=== PATIENT | female | born 1960 | race African-American/Black ===

== ENCOUNTER 2019-05-25 21:57 | Emergency (ER) | payer OTHER ==
[2019-05-25 22:03] VITALS: BMI 23.5
--- NOTE | 2019-05-25 22:41 | PDOC ---
History of Present Illness - General Chief Complaint: Headache Stated Complaint: HEAD PAIN X 3 DAYS Time Seen by Provider: 05/25/19 22:39 History Source: Patient Exam Limitations: No Limitations - History of Present Illness Initial Comments: 05/25/19 22:41 HPI: 59yo F with PMH herniated disk presenting with a headache for the past 3 days s/p reported fall during transfer while sedated at a facility placing epidural for her herniated disk pain (on 04/22). Patient was given 100 mcg of fentanyl and transferred to [facility] for post-procedure neck pain where she underwent head and neck CT which were negative for bleed and demonstrated a cervical spine strain. Patient was discharged with ibuprofen. Following day () she presented to her PCP who provided a muscle relaxant and told her she had a 'very bad concussion.' On 04/24 she sent to her neurologist's office (Dr. Kaye) and was given an injection which she reports helped her. She comes in with copies of documentation from the epidual facility ([facility]) and [facility]. No CT report. Last took Butalbital APAP at 8PM with some relief of her pain. Currently, patient is complaining of right parietal / occipital headache, photophobia, dizziness with movement, nausea (no vomiting) and poor PO since the initial incident. Reports that movement makes he symptoms worse, and she has a strange sensation in her left head "like something is in there, or I am not really touching it" and feels a pulling sensation if she turns her head. All: PCNs --> Swelling Meds: per chart PMH: as above PSH: denies SHx: never smoker Past History - Travel Traveled outside of the country in the last 30 days: No Close contact w/someone who was outside of country & ill: No - Past Medical History Allergies/Adverse Reactions: Allergies Allergy/AdvReac Type Severity Reaction Status Date / Time Penicillins Allergy Verified 05/25/19 22:03 COPD: No - Psycho Social/Smoking Cessation Hx Smoking History: Never smoked Review of Systems - Review of Systems Able to Perform ROS?: Yes Is the patient limited Czech proficient: Yes Constitutional: No: Chills, Diaphoresis, Fever, Weakness HEENTM: No: Eye Pain, Blurred Vision, Recent change in vision, Nose Congestion, Throat Pain, Dental Problems Respiratory: No: Cough, Shortness of Breath, Wheezing Cardiac (ROS): No: Chest Pain, Edema, Irregular Heart Rate, Palpitations, Syncope, Chest Tightness ABD/GI: Yes: See HPI, Diarrhea (3 epsisodes ), Nausea. No: Constipated, Vomiting : No: Burning, Dysuria, Discharge, Frequency Musculoskeletal: Yes: See HPI, Muscle Pain, Neck Pain. No: Back Pain, Muscle Weakness Integumentary: No: Bruising, Erythema, Pruritus, Rash Neurological: Yes: Headache, Dizziness. No: Numbness, Pre-Existing Deficit, Tingling, Weakness, Unsteady Gait Psychiatric: No: Anxiety, Depression, Emotional Problems Endocrine: No: Increased Thirst, Increased Urine, Unexplained Weight Gain, Unexplained Weight Loss, Change in Weight Hematologic/Lymphatic: No: Anemia, Blood Clots, Easy Bleeding All Other Systems: Reviewed and Negative *Physical Exam - Vital Signs Last Vital Signs Temp Pulse Resp BP Pulse Ox 97.8 F 63 18 124/97 99 05/25/19 22:00 05/25/19 22:00 05/25/19 22:00 05/25/19 22:00 05/25/19 22:00 - Physical Exam 05/25/19 22:41 AFVSS WDWN woman, appears stated age, sitting in a dark room NCAT, no bleeding, swelling, bony step-offs or tenderness, EOMI without pain, dry MM, trachea midline, tender para-spinals on the right RRR, nl s1s2, no murmur appreciated CTABL, normal WOB, no wheezes / rales / rhonchi Soft, non-tender, non-distended 2+ radial and PT pulses CN 2-12 intact, normal finger nose finger and rapid alternating movements, 5+ strength throughout, normal sensation throughout, normal articulation and memory ED Treatment Course - LABORATORY CBC & Chemistry Diagram: 05/25/19 22:55 05/25/19 22:55 Medical Decision Making - Medical Decision Making 05/25/19 22:42 59yo F with PMH herniated disk presenting with a headache for the past 3 days s/ p reported fall during transfer while sedated at a facility placing epidural for her herniated disk pain (on 04/22). DDX includes but is not limited to: Concussion, ICH, radiculopathy, primary KENDRICK. - CBC, CMP, T&S - IVF - Reglan - NCHCT, C-Spine - Toradol after CT results 05/26/19 02:22 - NCHCT without ICH - C6 osteophyte, C spine otherwise non-remarkable - Labs unremarkable - Patient ambulates well - Stable and ready for discharge - F/u with neurology Dispo: Home Discharge - Discharge Information Problems reviewed: Yes Clinical Impression/Diagnosis: Head ache Qualifiers: Headache type: post-traumatic Headache chronicity pattern: acute headache Intractability: not intractable Qualified Code(s): G44.319 - Acute post- traumatic headache, not intractable Condition: Stable Disposition: HOME - Admission No - Follow up/Referral Referrals: Lionel Barboza MD [Staff Physician] - - Patient Discharge Instructions Patient Printed Discharge Instructions: DI for Postconcussion Syndrome, DI for Concussion Additional Instructions: Continue to take your prescribed medications as directed. Please follow up with Dr. Barboza in the next 1-2 days. Return to the ED for any new or concerning symptoms including worsening headache that does not respond to pain medication, nausea/vomiting, changes in your vision, difficulty walking. - Post Discharge Activity
[2019-05-25 23:07] LABS: BASO % 0.9 % (0-2.0); EOS % 0.9 % (0-4.5); HEMATOCRIT 35.7 % (32.4-45.2); HEMOGLOBIN 11.9 GM/dL (10.7-15.3); LYMPH % 22.9 % (8-40); MCH 29.4 pg (25.7-33.7); MCHC 33.4 g/dl (32.0-36.0); MEAN CELL VOLUME 88.1 fl (80-96); MEAN PLT VOLUME 8.1 fl (7.5-11.1); MONO % 6.9 % (3.8-10.2); NEUT % 68.4 % (42.8-82.8); PLATELET COUNT 249 K/MM3 (134-434); RBC 4.06 M/mm3 (3.60-5.2); RDW 13.7 % (11.6-15.6); WHITE BLOOD COUNT 6.5 K/mm3 (4.0-10.0)
[2019-05-25 23:19] LABS: INR 0.97 (0.83-1.09); PROTHROMBIN TIME (PATIENT) 11.5 SEC (9.7-13.0)
[2019-05-25 23:21] LABS: ACTIVATED PTT 27.5 SECONDS (25.2-36.5)
[2019-05-25 23:25] LABS: ALBUMIN 3.8 g/dl (3.4-5.0); BILIRUBIN,TOTAL 0.5 mg/dL (0.2-1); BLOOD UREA NITROGEN 17.8 mg/dL (7-18); CALCIUM 8.9 mg/dL (8.5-10.1); CREATININE 0.9 mg/dL (0.55-1.3); POTASSIUM 3.6 mmol/L (3.5-5.1); TOT PROT 6.8 g/dl (6.4-8.2)
[2019-05-25] MEDS ORDERED: METOCLOPRAMIDE HCL INJECTION 10 MG/2 ML VIAL IVPB ONE (23:25)
[2019-05-25] MEDS ORDERED: SODIUM CHLORIDE 0.9% 500 ML INFUS.BAG IV ONE (23:25)
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
[2019-05-25] MEDS ORDERED: METOCLOPRAMIDE HCL INJECTION 10 MG/2 ML VIAL ONE (23:44)
[2019-05-26 03:39] VITALS: BP 115/71; PULSE 54; TEMP 98.1
== END 2019-05-26 03:59 | disposition home or self-care (01) ==
LOC: JER 21:57
PROC: 3E033GC Introduction of Other Therapeutic Substance into Peripheral Vein, Percutaneous Approach (ICD-10-PCS; principal; 2019-05-25)
DX: G44.319 Acute post-traumatic headache, not intractable (principal); F07.81 Postconcussional syndrome; W04.XXXA Fall while being carried or supported by other persons, initial encounter; Y93.89 Activity, other specified; Y92.531 Health care provider office as the place of occurrence of the external cause; Y99.8 Other external cause status; Z88.0 Allergy status to penicillin
CPT/HCPCS: 36415; 70450-TC; 72125-TC; 80053; 84484; 85025; 85610; 85730; 86850; 86900; 86901; 99284-25

== ENCOUNTER 2019-05-28 12:03 | Inpatient (IN) | payer OTHER ==
[2019-05-28 12:09] VITALS: BMI 23.5
[2019-05-28] MEDS ORDERED: SODIUM CHLORIDE 0.9% 500 ML INFUS.BAG IV ONE (13:05)
[2019-05-28] MEDS ORDERED: KETOROLAC TROMETHAMINE 30 MG/1 ML VIAL IVPUSH ONE (13:05)
[2019-05-28] MEDS ORDERED: METOCLOPRAMIDE HCL INJECTION 10 MG/2 ML VIAL IVPUSH ONE (13:06)
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
[2019-05-28] MEDS ORDERED: KETOROLAC TROMETHAMINE 30 MG/1 ML VIAL ONE (14:00)
[2019-05-28] MEDS ORDERED: METOCLOPRAMIDE HCL INJECTION 10 MG/2 ML VIAL ONE (14:00)
[2019-05-28] MEDS ORDERED: ACETAMINOPHEN 325 MG TABLET (FP) PO PRN (14:10)
[2019-05-28 14:11] LABS: BASO % 1.2 % (0-2.0); EOS % 1.2 % (0-4.5); HEMATOCRIT 38.3 % (32.4-45.2); HEMOGLOBIN 12.7 GM/dL (10.7-15.3); LYMPH % 25.9 % (8-40); MCH 29.2 pg (25.7-33.7); MEAN CELL VOLUME 88.4 fl (80-96); MEAN PLT VOLUME 8.3 fl (7.5-11.1); MONO % 6.1 % (3.8-10.2); NEUT % 65.6 % (42.8-82.8); PLATELET COUNT 277 K/MM3 (134-434); RBC 4.33 M/mm3 (3.60-5.2)
[2019-05-28 14:39] LABS: INR 1.01 (0.83-1.09); PROTHROMBIN TIME (PATIENT) 11.9 SEC (9.7-13.0)
[2019-05-28 14:42] LABS: ACTIVATED PTT 30.5 SECONDS (25.2-36.5)
[2019-05-28 14:55] LABS: ALBUMIN 4.1 g/dl (3.4-5.0); BILIRUBIN,TOTAL 0.5 mg/dL (0.2-1); BLOOD UREA NITROGEN 12.8 mg/dL (7-18); CREATININE 0.7 mg/dL (0.55-1.3); POTASSIUM 3.7 mmol/L (3.5-5.1); TOT PROT 7.3 g/dl (6.4-8.2)
[2019-05-28 16:00] LABS: EPI CELLS 4.4 /HPF (0-5/HPF); HYALINE CASTS 9 /lpf (0-8); PH,URINE 6.5 (5.0-8.0); URINE APPEARANCE CLEAR; URINE BACTERIA 74.5 /hpf (NEGATIVE); URINE BILIRUBIN NEGATIVE (NEGATIVE); URINE COLOR YELLOW; URINE GLUCOSE (UA) NEGATIVE (NEGATIVE); URINE KETONE NEGATIVE (NEGATIVE); URINE LEUK ESTERASE TRACE (NEGATIVE); URINE NITRITE NEGATIVE (NEGATIVE); URINE PROTEIN NEGATIVE (NEGATIVE); URINE RBC 3 /hpf (0-4); URINE UROBILINOGEN 0.2 mg/dL (0.2-1.0); URINE WBC 7 /hpf (0-5)
--- NOTE | 2019-05-28 17:12 | CON.NEURO ---
Consult Consult Specialty:: Jabari Referred by:: ER Reason for Consultation:: TBI - History of Present Illness History of Present Illness: 59-year-old right-handed female patient -B[place] with history of migraine headache and history of chronic low back pain presented to the emergency room at [facility] with a chief complaint of increasing unrelenting headache. Roughly about a week ago patient was under the care of spray painter patient was seen to spray painter because of back pain patient was taken for epidural injection according to the patient that was done under sedation. I spoke to the patient' s friend who told me that he was waiting in the [place] for the patient to come out and then he was told that they were called the ambulance patient was told that she fell off the table with sustained head trauma patient has been suffering with severe unrelenting headache neck pain. I saw the patient last week in my office I gave the patient promethazine and Cambia for the headache. patient denies any seizure-like activity patient with severe 10 out of 10 headache radiating to the left side with left-sided neck pain patient with difficulty with photophobia and phonophobia patient with dizziness word finding difficulty. Patient denies any prior similar symptoms. Patient never had a headache with migraine like this before. - History Source History Provided By: Patient Limitations to Obtaining History: No Limitations - Alcohol/Substance Use Hx Alcohol Use: No - Smoking History Smoking history: Never smoked Home Medications - Allergies Allergies/Adverse Reactions: Allergies Allergy/AdvReac Type Severity Reaction Status Date / Time Penicillins Allergy Verified 05/28/19 12:09 - Home Medications Home Medications: Ambulatory Orders Pravastatin Sodium 20 mg PO DAILY 05/26/19 Family Medical History Family History: Unremarkable Review of Systems - Review of Systems Constitutional: reports: No Symptoms Eyes: reports: No Symptoms Neurological: reports: Dizziness, Headache, Incoordination, Numbness, Parasthesia Physical Exam-Neuro Vital Signs: Vital Signs Temperature 98.5 F 05/28/19 16:35 Pulse Rate 57 L 05/28/19 16:35 Respiratory Rate 18 05/28/19 16:35 Blood Pressure 127/68 05/28/19 16:35 O2 Sat by Pulse Oximetry (%) 98 05/28/19 15:41 Constitutional: Yes: Well Nourished Neck: Yes: WNL Cardiovascular: Yes: WNL Labs: CBC, BMP 05/28/19 13:50 05/28/19 13:50 INR, PTT INR 1.01 (0.83-1.09) 05/28/19 13:50 - Neuro Exam Level Of Consciousness: Yes: Oriented to Person, Oriented to Place Eyes: Yes: PERRL, PERRLA Speech: WNL Dominant Hand: Right Cranial Nerves II-XII Intact: Yes Gag: Present DTR's: 0 Left Achilles, 0 Right Achilles, 1+ Left Bicep, 1+ Right Bicep, 1+ Left Tricep, 1+ Right Tricep Babinski: Absent Response to light touch: Normal Response to pain prick: Normal Response to temperature: Normal Response to vibration: Normal Motor Strength: 3/5: Left Arm, Right Arm, Left Leg, Right Leg Gait: Deferred Problem List - Problems (1) Postconcussion syndrome Assessment/Plan: 1. Bedrest. 2. Increase by mouth fluid intake. 3. IV fluid. 4. Fioricet when necessary headache. 4. Decadron 4 mg every 8 hours. 5. MRI of the brain with no contrast. 6. GI prophylaxis. Thank you for allowing me to be part of this patient's neurological care we'll follow the patient during the admission thank you Code(s): F07.81 - POSTCONCUSSIONAL SYNDROME
[2019-05-28] MEDS: ACETAMINOPHEN/CAFFEINE/BUTALBITAL 1 TAB PO PRN (19:15)
[2019-05-28] MEDS: PANTOPRAZOLE 40 MG TABLET (FP) PO SCH (19:16)
[2019-05-28] MEDS: DEXAMETHASONE SOD PHOSPHATE 4 MG/1 ML VIAL IVPB SCH (21:48)
[2019-05-28] MEDS: LACTATED RINGERS SOLUTION 1,000 ML/1,000 ML INFUS.BAG IV SCH (21:48)
[2019-05-29] MEDS: ACETAMINOPHEN/CAFFEINE/BUTALBITAL 1 TAB PO PRN ×3 (00:59→14:51)
[2019-05-29] MEDS: DEXAMETHASONE SOD PHOSPHATE 4 MG/1 ML VIAL IVPB SCH ×4 (02:48→21:31)
[2019-05-29 08:06] LABS: HEMATOCRIT 37.6 % (32.4-45.2); HEMOGLOBIN 12.6 GM/dL (10.7-15.3); MCH 29.2 pg (25.7-33.7); MCHC 33.5 g/dl (32.0-36.0); MEAN CELL VOLUME 87.2 fl (80-96); MEAN PLT VOLUME 8.4 fl (7.5-11.1); PLATELET COUNT 274 K/MM3 (134-434); RBC 4.31 M/mm3 (3.60-5.2); RDW 13.8 % (11.6-15.6); WHITE BLOOD COUNT 4.7 K/mm3 (4.0-10.0)
[2019-05-29 08:18] LABS: BILIRUBIN,TOTAL 0.5 mg/dL (0.2-1); BLOOD UREA NITROGEN 11.7 mg/dL (7-18); CALCIUM 9.5 mg/dL (8.5-10.1); CREATININE 0.7 mg/dL (0.55-1.3); MAGNESIUM 2.2 mg/dL (1.8-2.4); POTASSIUM 3.8 mmol/L (3.5-5.1); TOT PROT 7.3 g/dl (6.4-8.2)
[2019-05-29 08:33] LABS: INR 0.98 (0.83-1.09); PROTHROMBIN TIME (PATIENT) 11.6 SEC (9.7-13.0)
[2019-05-29] MEDS: PANTOPRAZOLE 40 MG TABLET (FP) PO SCH (09:38)
[2019-05-29] MEDS: LACTATED RINGERS SOLUTION 1,000 ML/1,000 ML INFUS.BAG IV SCH (09:39)
--- NOTE | 2019-05-29 10:50 | PN ---
Progress Note (short form) - Note Progress Note: Hospitalist Medicine C/o "burning sensation in head; that radiates from inside, outward." States it was mildly alleviated with fioricet. However pt looks comfortable, eating candy Vitals 05/29/19 05:52 Temperature 98 F Pulse Rate 52 L Respiratory 20 Rate Blood Pressure 124/66 Physical Exam general: resting in bed, in NAD HEENT: NCAT, PERRLA. neck: supple cardio: S1, S2 RRR. no r/m/g pulm: CTA b/l abdomen: nontender, nondistended LE: 2+ pulses, no edema neuro: Airway Traffic Controller 2-12 grossly intact. 4/5 motor strength UE, LE. sensation intact Laboratory Tests 05/28/19 05/29/19 05/29/19 15:30 07:15 07:15 WBC 4.7 Hgb 12.6 Hct 37.6 Plt Count 274 PT with INR 11.60 INR 0.98 Sodium Potassium Chloride Carbon Dioxide BUN Creatinine Random Glucose Urine Protein Negative Urine Glucose (UA) Negative Urine Ketones Negative Urine Blood Negative Urine Nitrite Negative Urine Bilirubin Negative Urine Urobilinogen 0.2 Ur Leukocyte Esterase Trace Urine WBC (Auto) 7 Urine RBC (Auto) 3 Urine Casts (Auto) 9 U Epithel Cells (Auto) 4.4 Urine Bacteria (Auto) 74.5 05/29/19 07:15 WBC Hgb Hct Plt Count PT with INR INR Sodium 141 Potassium 3.8 Chloride 109 H Carbon Dioxide 26 BUN 11.7 Creatinine 0.7 Random Glucose 116 H Urine Protein Urine Glucose (UA) Urine Ketones Urine Blood Urine Nitrite Urine Bilirubin Urine Urobilinogen Ur Leukocyte Esterase Urine WBC (Auto) Urine RBC (Auto) Urine Casts (Auto) U Epithel Cells (Auto) Urine Bacteria (Auto) Imaging 05/28/19 CXR: no acute chest pathology 05/29/19: Brain MRI: scattered area of gliosis at junction of white and almonte matter of both cerebral hemispheres sequela most likely to hypertension or small vessel atherosclerosis. no evidence of acute infarction. no evidence of intracerebral hemorrhage, subdural fluid collection OR hydrocephalus. otherwise unremarkable. Assessment/Plan 59 y/o F with PMH migraines and chronic lower back pain who presented to ED for intractable headaches over the last two weeks. #intractable headache #postconcussion syndrome -per brain MRI, without acute changes. gliosis likely 2/2 HTN changes -c/w IVF, fioricet PRN -decadron 4mg q6h per neuro, with GI ppx -Neuro: Dr. Barboza #F/E/N LR 75 cc/hr continue to follow lytes reg diet, encourage PO intake #PPX DVT: SCD's #Dispo cont'd monitoring on med-surg on IV steroids
[2019-05-29] MEDS ORDERED: MELATONIN 1 MG TABLET PO ONE (16:00)
--- NOTE | 2019-05-29 17:13 | PN ---
Progress Note, Physician History of Present Illness: EVENTS NOTED Chart reviewed seen on the floor Still with pounding headache mRI noted - Current Medication List Current Medications: Active Medications Acetaminophen/Butalbital/Caffeine (Fioricet -) 1 tablet PO Q6H PRN PRN Reason: HEADACHE Last Admin: 05/29/19 14:51 Dose: 1 tablet Dexamethasone Sodium Phosphate (Decadron Injection -) 4 mg IVPB Q6H-IV JOSEF Last Admin: 05/29/19 14:52 Dose: 4 mg Lactated Ringer's (Lactated Ringers Solution) 1,000 ml in 1,000 mls @ 75 mls/ hr IV ASDIR JOSEF Last Admin: 05/29/19 09:39 Dose: 75 mls/hr Pantoprazole Sodium (Protonix -) 40 mg PO DAILY JOSEF Last Admin: 05/29/19 09:38 Dose: 40 mg - Objective Vital Signs: Vital Signs Temperature 98.2 F 05/29/19 15:00 Pulse Rate 77 05/29/19 15:00 Respiratory Rate 18 05/29/19 15:00 Blood Pressure 123/70 05/29/19 15:00 O2 Sat by Pulse Oximetry (%) 95 05/29/19 09:00 Constitutional: Yes: Well Nourished Eyes: Yes: WNL HENT: Yes: WNL Neurological: Yes: Alert, Oriented, Babinski negative ...Motor Strength: WNL Labs: CBC, BMP 05/29/19 07:15 05/29/19 07:15 INR, PTT INR 0.98 (0.83-1.09) 05/29/19 07:15 Problem List - Problems (1) Postconcussion syndrome Assessment/Plan: 1. Continue Decadron. 2. DVT prophylaxis. 3. Check BGM. 4. Fioricet when necessary headache Code(s): F07.81 - POSTCONCUSSIONAL SYNDROME
[2019-05-29] MEDS ORDERED: MAG HYDROX/AL HYDROX/SIMETH 30 ML UNIT-DOSE CUP PO ONE (22:41)
[2019-05-30] MEDS: ACETAMINOPHEN/CAFFEINE/BUTALBITAL 1 TAB PO PRN ×3 (00:20→21:49)
[2019-05-30] MEDS: DEXAMETHASONE SOD PHOSPHATE 4 MG/1 ML VIAL IVPB SCH ×4 (02:03→21:49)
--- NOTE | 2019-05-30 05:23 | EKG ---
Test Reason : Blood Pressure : / mmHG Vent. Rate : 055 BPM Atrial Rate : 055 BPM P-R Int : 138 ms QRS Dur : 080 ms QT Int : 446 ms P-R-T Axes : 063 021 016 degrees QTc Int : 426 ms POOR DATA QUALITY, INTERPRETATION MAY BE ADVERSELY AFFECTED SINUS BRADYCARDIA LOW VOLTAGE QRS BORDERLINE ECG NO PREVIOUS ECGS AVAILABLE Confirmed by BLESSING VALENZUELA MD ([id number]) on 05/30/2019 5:23:33 AM Referred By: Confirmed By:BLESSING VALENZUELA MD
[2019-05-30 08:34] LABS: BASO % 0.2 % (0-2.0); HEMOGLOBIN 12.1 GM/dL (10.7-15.3); LYMPH % 11.5 % (8-40); MCH 29.1 pg (25.7-33.7); MCHC 33.5 g/dl (32.0-36.0); MEAN PLT VOLUME 8.6 fl (7.5-11.1); MONO % 3.4 % (3.8-10.2); NEUT % 84.9 % (42.8-82.8); PLATELET COUNT 273 K/MM3 (134-434); RBC 4.15 M/mm3 (3.60-5.2); RDW 13.9 % (11.6-15.6); WHITE BLOOD COUNT 6.2 K/mm3 (4.0-10.0)
[2019-05-30] MEDS: PANTOPRAZOLE 40 MG TABLET (FP) PO SCH (09:00)
[2019-05-30] MEDS: LACTATED RINGERS SOLUTION 1,000 ML/1,000 ML INFUS.BAG IV SCH (09:01)
[2019-05-30 09:09] LABS: BLOOD UREA NITROGEN 10.7 mg/dL (7-18); CALCIUM 9.2 mg/dL (8.5-10.1); CREATININE 0.7 mg/dL (0.55-1.3); MAGNESIUM 2.2 mg/dL (1.8-2.4); PHOSPHOROUS 4.4 mg/dL (2.5-4.9)
--- NOTE | 2019-05-30 14:18 | PN ---
Progress Note (short form) - Note Progress Note: Hospitalist Medicine Looks comfortable. Still w/ headache however improved. Vitals 05/30/19 10:00 Temperature 98.7 F Pulse Rate 50 L Respiratory 18 Rate Blood Pressure 134/72 Physical Exam general: resting in bed, in NAD HEENT: NCAT, PERRLA. neck: supple cardio: S1, S2 RRR. no r/m/g pulm: CTA b/l abdomen: nontender, nondistended LE: 2+ pulses, no edema neuro: non-focal exam; salary and wage administrator 2-12 grossly intact. 4/5 motor strength UE, LE. Laboratory Tests 05/30/19 05/30/19 07:40 07:40 WBC 6.2 Hgb 12.1 Hct 36.0 Plt Count 273 Sodium 144 Potassium 4.0 Chloride 108 H Anion Gap 6 L BUN 10.7 Creatinine 0.7 Est GFR (CKD-EPI)AfAm 108.38 Random Glucose 98 Imaging 05/28/19 CXR: no acute chest pathology 05/29/19: Brain MRI: scattered area of gliosis at junction of white and almonte matter of both cerebral hemispheres sequela most likely to hypertension or small vessel atherosclerosis. no evidence of acute infarction. no evidence of intracerebral hemorrhage, subdural fluid collection OR hydrocephalus. otherwise unremarkable. Assessment/Plan 59 y/o F with PMH migraines and chronic lower back pain who presented to ED for intractable headaches over the last two weeks. #intractable headache #postconcussion syndrome -per brain MRI, without acute changes. gliosis likely 2/2 HTN changes -c/w IVF, fioricet PRN -decadron 4mg q6h per neuro, with GI ppx for steroid taper on d/c -Neuro: Dr. Barboza #F/E/N LR 75 cc/hr continue to follow lytes reg diet, encourage PO intake #PPX DVT: SCD's #Dispo cont'd monitoring on med-surg on IV steroids; for PO taper on d/c anticipate d/c 24 hrs <Lillie Christensen - Last Filed: 05/30/19 14:19> - Note Progress Note: ASSESSMENT/PLAN: Patient presents with ongoing headache of unclear etiology; she attributes it to a recent accident involving a "fall during procedure," call to [facility] to review records yields the information that staff actually denies the fall happening during the procedure. -Subacute severe intractable headache with migrane features, r/o status migranosis requesting admission for MRI; will defer further treatment and workup to them. No fall per [facility]. Need to discuss with them and neuro -Possible concussion *States PCP told her she had "a bad concussion" but we need to see if she fell and discuss with acility and FU with neurology. Peending records. -Chronic back pain *Verify and continue home medications; chronic severe subjective symptoms with no FNDs on exam or developing red flag symptoms. Full Code DVT px: Ambulation and SCDs GI px: Not indicated Dispo: Pending neurological clearance; would like records from the injection facility. Full Code <Carlos Hernandez - Last Filed: 05/31/19 05:47>
--- NOTE | 2019-05-30 19:06 | PN ---
Progress Note, Physician History of Present Illness: feels better seen with daughter at the bedside No complains On steroids - Current Medication List Current Medications: Active Medications Acetaminophen/Butalbital/Caffeine (Fioricet -) 1 tablet PO Q6H PRN PRN Reason: HEADACHE Last Admin: 05/30/19 14:04 Dose: 1 tablet Dexamethasone Sodium Phosphate (Decadron Injection -) 4 mg IVPB Q6H-IV JOSEF Last Admin: 05/30/19 15:05 Dose: 4 mg Lactated Ringer's (Lactated Ringers Solution) 1,000 ml in 1,000 mls @ 75 mls/ hr IV ASDIR JOSEF Last Admin: 05/30/19 09:01 Dose: 75 mls/hr Pantoprazole Sodium (Protonix -) 40 mg PO DAILY JOSEF Last Admin: 05/30/19 09:00 Dose: 40 mg - Objective Vital Signs: Vital Signs Temperature 98.5 F 05/30/19 15:51 Pulse Rate 61 05/30/19 15:51 Respiratory Rate 18 05/30/19 15:51 Blood Pressure 134/52 L 05/30/19 15:51 O2 Sat by Pulse Oximetry (%) 95 05/29/19 21:00 Constitutional: Yes: Well Nourished Eyes: Yes: WNL HENT: Yes: WNL Neurological: Yes: Alert, Oriented, Babinski negative ...Motor Strength: WNL Labs: CBC, BMP 05/30/19 07:40 05/30/19 07:40 INR, PTT INR 0.98 (0.83-1.09) 05/29/19 07:15 Problem List - Problems (1) Postconcussion syndrome Assessment/Plan: Taper steroids to 4mg po q12 2. GI priphylaxis 3. Fioricet prn 4. Meclizine DC planning Code(s): F07.81 - POSTCONCUSSIONAL SYNDROME
[2019-05-30] MEDS ORDERED: MELATONIN 5 MG TABLETS PO PRN (21:41)
[2019-05-31] MEDS: DEXAMETHASONE SOD PHOSPHATE 4 MG/1 ML VIAL IVPB SCH (02:26)
[2019-05-31] MEDS: LACTATED RINGERS SOLUTION 1,000 ML/1,000 ML INFUS.BAG IV SCH ×2 (02:44→08:15)
[2019-05-31] MEDS: ACETAMINOPHEN/CAFFEINE/BUTALBITAL 1 TAB PO PRN ×2 (05:54→13:44)
[2019-05-31] MEDS ORDERED: DEXAMETHASONE SOD PHOSPHATE 4 MG/1 ML VIAL IVPB SCH (07:45)
[2019-05-31] MEDS: PANTOPRAZOLE 40 MG TABLET (FP) PO SCH (08:59)
[2019-05-31 09:11] VITALS: BP 121/65; PULSE 59; TEMP 98.1
[2019-05-31] MEDS ORDERED: POLYETHYLENE GLYCOL 3350 119 GM BTL PO ONE (13:15)
--- NOTE | 2019-05-31 18:24 | DS ---
Physical Exam: SUBJECTIVE: Patient seen and examined at bedside. Eating lunch. Still with mild KENDRICK, however has improved. OBJECTIVE: Vital Signs Period Temp Pulse Resp BP Sys/Silverman Pulse Ox Last 24 Hr 97.7 F-98.4 F 50-70 17-20 112-130/65-74 95-99 Physical Exam general: resting in bed, in NAD HEENT: NCAT, PERRLA. neck: supple cardio: S1, S2 RRR. no r/m/g pulm: CTA b/l abdomen: nontender, nondistended LE: 2+ pulses, no edema neuro: non-focal exam; electromechanical technologist 2-12 grossly intact. 4/5 motor strength UE, LE. LABS 05/28/19 05/28/19 05/28/19 13:50 13:50 13:50 WBC 6.0 Hgb 12.7 Hct 38.3 Plt Count 277 PT with INR 11.90 INR 1.01 Sodium 141 Potassium 3.7 Chloride 106 Anion Gap 6 L BUN 12.8 Creatinine 0.7 05/29/19 05/29/19 05/29/19 07:15 07:15 07:15 WBC 4.7 Hgb 12.6 Hct 37.6 Plt Count 274 PT with INR 11.60 INR 0.98 Sodium 141 Potassium 3.8 Chloride 109 H Anion Gap 6 L BUN 11.7 Creatinine 0.7 05/30/19 05/30/19 07:40 07:40 WBC 6.2 Hgb 12.1 Hct 36.0 Plt Count 273 PT with INR INR Sodium 144 Potassium 4.0 Chloride 108 H Anion Gap 6 L BUN 10.7 Creatinine 0.7 Imaging 05/28/19 CXR: no acute chest pathology 05/29/19: Brain MRI: scattered area of gliosis at junction of white and almonte matter of both cerebral hemispheres sequela most likely to hypertension or small vessel atherosclerosis. no evidence of acute infarction. no evidence of intracerebral hemorrhage, subdural fluid collection OR hydrocephalus. otherwise unremarkable. HOSPITAL COURSE: Date of Admission:05/28/19 Date of Discharge: 05/31/19 59 y/o F with PMH migraines and chronic lower back pain who presented to ED for intractable headaches over the last two weeks. #intractable headache #postconcussion syndrome -per brain MRI, without acute changes. gliosis likely 2/2 HTN changes however pt denies past hx -was on IVF during admission upon request from neuro - fioricet PRN to continue on d/c -decadron 4mg q12h w/ taper per neuro, w/ GI PPX (protonix) -Neuro: Dr. Barboza, cleared for dc -will need PCP, neuro f/u on d/c #constipation -encouraged ambulation on d/c -pt to c/w miralax PRN Minutes to complete discharge: 46 Discharge Summary Problems reviewed: Yes Reason For Visit: INTRACTABLE HEADACHE Condition: Stable - Instructions Diet, Activity, Other Instructions: You were in the hospital because you had a severe headache. You were found to have post concussion syndrome. You were treated with IV steroids and fioricet, and improved. Your brain MRI was normal. You are being sent home. Medications 1. Please continue the following steroid taper at home: -Decadron 4mg every 12 hours - 3 days (starting tomorrow 06/01-06/03) -Decadron 2mg every 12 hours - 3 days (06/04-06/06) -Decadron 2mg every 8 hours- 3 days (06/07-06/09) -Decadron 2 mg every day for 3 days (06/10-06/12) Do not abruptly stop the steroids otherwise it could harm your adrenal glands. 2. During this time, on the steroid taper, you must take protonix 40mg (1 pill) daily. This is an acid suppressant for your stomach. 3. You may take Fioricet 1 tablet every 6 hours as needed for migraine. 4. We are also sending you home with a medication to help constipation: miralax. You can take 17gm dose every day as needed for constipation. Care It is important to stay hydrated as this will help your symptoms. It is also important to avoid foods that trigger your migraines (such as chocolate, nuts, citrus fruits, caffeine, aged meats, alcohol, spicy foods) Follow-up Please follow up with the following doctors upon your discharge: -your primary care physician- 1 week, or if you would like to follow with a different one, we are referring you also to Dr. Beard, a primary care doctor to establish care - please see this week to discuss your visit -Dr. Barboza, the neurologist who saw you in the hospital - 1 week. If you develop chest pain or shortness of breath, please go to the hospital. Referrals: Danny Beard MD [Staff Physician] - 1 Week Lionel Barboza MD [Staff Physician] - 1 Week Disposition: HOME - Home Medications Comprehensive Discharge Medication List: Ambulatory Orders Pravastatin Sodium 20 mg PO DAILY 05/26/19 Acetaminophen/Caffeine/Butalb [Fioricet Tablets] 1 tablet PO Q6H PRN #30 tablet MDD 4 tab 05/30/19 Pantoprazole Sodium [Protonix -] 40 mg PO DAILY #30 tablet.ec 05/30/19 Acetaminophen/Caffeine/Butalb [Fioricet -] 1 tab PO Q6H PRN #20 tablet MDD 4 Dexamethasone [Decadron -] 2 mg PO Q12H #6 tablet 05/31/19 Dexamethasone [Decadron] 2 mg PO DAILY #3 tablet 05/31/19 Dexamethasone [Decadron] 2 mg PO Q8H #9 tablet 05/31/19 Dexamethasone [Decadron] 4 mg PO Q12H #6 tablet 05/31/19 Polyethylene Glycol 3350 [Miralax (For Daily Use) -] 17 gm PO DAILY #1 bottle This patient is new to me today: No Emergency Visit: No Critical Care patient: No - Discharge Referral Referred to [facility] No
--- NOTE | 2019-05-31 18:32 | PN ---
Teaching Attending Note Name of Resident: Lillie Christensen ATTENDING PHYSICIAN STATEMENT I saw and evaluated the patient. I reviewed the resident's note and discussed the case with the resident. I agree with the resident's findings and plan as documented.
--- NOTE | 2019-05-31 18:37 | PN ---
Teaching Attending Note Name of Resident: Lillie Christensen ATTENDING PHYSICIAN STATEMENT I saw and evaluated the patient. I reviewed the resident's note and discussed the case with the resident. I agree with the resident's findings and plan as documented. 59 y/o F with PMHx of migraines and chronic lower back pain admitted for acute on chronic migraines with retractable pain not resolving on home meds. Patient seen by Neurology, cleared for DC home and neurology outpatient follow up. Patient today endorses mild KENDRICK, but improved from prior, was seen eating breakfast, comfortable. Physical Exam general: resting in bed, in NAD HEENT: NCAT, PERRLA. neck: supple cardio: S1, S2 RRR. no r/m/g pulm: CTA b/l abdomen: nontender, nondistended LE: 2+ pulses, no edema neuro: non-focal exam; jira developer 2-12 grossly intact. 4/5 motor strength UE, LE. Vital Signs - 24 hr 05/30/19 05/30/19 05/31/19 20:33 21:00 05:44 Temperature 98.4 F 97.7 F Pulse Rate 70 50 L Respiratory 20 20 20 Rate Blood Pressure 130/74 112/70 O2 Sat by Pulse 95 Oximetry (%) 05/31/19 05/31/19 09:00 09:10 Temperature 98.1 F Pulse Rate 59 L Respiratory 17 17 Rate Blood Pressure 121/65 O2 Sat by Pulse 99 Oximetry (%) Home Medications Medication Instructions Recorded Pravastatin Sodium 20 mg PO DAILY 05/26/19 Acetaminophen/Caffeine/Butalb 1 tablet PO Q6H PRN #30 tablet MDD 05/30/19 [Fioricet Tablets] 4 tab Pantoprazole Sodium [Protonix -] 40 mg PO DAILY #30 tablet.ec 05/30/19 Acetaminophen/Caffeine/Butalb 1 tab PO Q6H PRN #20 tablet MDD 4 05/31/19 [Fioricet -] Dexamethasone [Decadron -] 2 mg PO Q12H #6 tablet 05/31/19 Dexamethasone [Decadron] 2 mg PO DAILY #3 tablet 05/31/19 Dexamethasone [Decadron] 2 mg PO Q8H #9 tablet 05/31/19 Dexamethasone [Decadron] 4 mg PO Q12H #6 tablet 05/31/19 Polyethylene Glycol 3350 [Miralax 17 gm PO DAILY #1 bottle 05/31/19 (For Daily Use) -] A/P: I agree with residents note and recommend the following. 59 F h/o migraine disorder, with acute exacerbation, was seen by Neurology and diagnosed with post-concussive syndrome, improved with Fioricet and cleared for DC home. Post concussive syndrome MRI showing gliosis likely reactive due to old chronic microvascular changes Patient headaches improved with Fioricet, will DC home to continue, add Meclizine PRN for dizziness Decadron tapered dose, supplement with PPI Outpatient Neurology follow up Follow up with outpatient PCP Disposition: Discharge home without services.
== END 2019-05-31 18:06 | disposition home or self-care (01) | DRG 103 ==
LOC: JER 12:03 → JERBED 13:25 → J6S 16:24
PROVIDERS: ADMIT Internal Medicine
DX: F07.81 Postconcussional syndrome (principal); R51 Headache; K59.00 Constipation, unspecified; E78.5 Hyperlipidemia, unspecified
CPT/HCPCS: 36415; 70551-TC; 71046-TC-FY; 80048; 80053; 81003; 83735; 84100; 84436; 84443; 84479; 85025; 85027; 85610; 85651; 85730; 93005; 93010; 97116-GP; 97161-GP; 99283-25